=== PATIENT | male | born 1990 | race Caucasian/White ===

== ENCOUNTER 2020-02-27 21:56 | Inpatient (IN) | payer BC ==
[~2020-02-27] VITALS: Ht 180.3 cm; Wt 80.0 kg
--- NOTE | 2020-02-27 22:50 | NUR ---
ASSUMED CARE OF THIS PATIENT AT THIS TIME.
[2020-02-27] MEDS ORDERED: KETOROLAC 30 MG/ML VIAL IVP STA (22:53)
[2020-02-27] MEDS ORDERED: cefTRIAXone FOR IV USE 2,000 MG in WATER (STERILE) FOR INJECTION 20 ML IV ONE (23:00)
[2020-02-27] MEDS ORDERED: NS IV 1000 ML 1,000 ML IV SCH (23:00)
[2020-02-27 23:17] LABS: BASOPHILS % (AUTO) 0 % (0-10); EOSINOPHILS # (AUTO) 0.1 10^3/uL (0.0-0.3); EOSINOPHILS % (AUTO) 1 % (0-10); HEMATOCRIT 39 % (40-54); HEMOGLOBIN 13.4 g/dL (13.3-17.7); LYMPHOCYTES # (AUTO) 1.8 10^3/uL (1.0-4.0); LYMPHOCYTES % (AUTO) 24 % (12-44); MEAN CORPUSCULAR HEMOGLOBIN 31 pg (25-34); MEAN CORPUSCULAR HGB CONC 34 g/dL (32-36); MEAN CORPUSCULAR VOLUME 91 fL (80-99); MEAN PLATELET VOLUME 10.7 fL (9.0-12.2); MONOCYTES # (AUTO) 0.7 10^3/uL (0.0-1.0); MONOCYTES % (AUTO) 10 % (0-12); NEUTROPHILS # (AUTO) 4.7 10^3/uL (1.8-7.8); NEUTROPHILS % (AUTO) 65 % (42-75); PLATELET COUNT 183 10^3/uL (130-400); WHITE BLOOD COUNT 7.3 10^3/uL (4.3-11.0)
[2020-02-27 23:28] LABS: CHLORIDE 95 MMOL/L (98-107); POTASSIUM 4.3 MMOL/L (3.6-5.0); SODIUM 134 MMOL/L (135-145)
[2020-02-27 23:30] LABS: CALCIUM 8.9 MG/DL (8.5-10.1); PROTHROMBIN TIME PATIENT 13.3 SEC (12.2-14.7)
[2020-02-27 23:31] LABS: TOTAL PROTEIN 6.7 GM/DL (6.4-8.2)
[2020-02-27 23:32] LABS: BILIRUBIN,TOTAL 0.4 MG/DL (0.1-1.0); CARBON DIOXIDE 28 MMOL/L (21-32)
[2020-02-27 23:34] LABS: ALKALINE PHOSPHATASE 76 U/L (40-136); CREATININE SERUM 1.06 MG/DL (0.60-1.30); GFR ESTIMATED > 60
[2020-02-27 23:35] LABS: BUN/CREATININE RATIO 13
[2020-02-27 23:36] LABS: GLUCOSE 403 MG/DL (70-105)
[2020-02-27 23:37] LABS: ALANINE AMINOTRANSFERASE 19 U/L (0-55)
[2020-02-27] MEDS ORDERED: inSUlin (REGULAR) HUMAN 1 UNIT/0.01 ML (CHARGE PER UNIT) IV ONE (23:45)
[2020-02-27] MEDS ORDERED: fentaNYL INJECTION 100 MCG/2 ML AMP IVP STA (23:47)
[2020-02-28] MEDS ORDERED: NS 100 ML (IVPB) BAG IV ONE
[2020-02-28] MEDS ORDERED: HOLD METFORMIN - RECEIVED CONTRAST 20 ML VIAL IV SCH
[2020-02-28] MEDS ORDERED: IOHEXOL 350 MG/ML 150 ML (OMNIPAQUE 350) VIAL IV ONE
[2020-02-28] MEDS ORDERED: NS IV 1000 ML 1,000 ML IV SCH (00:30)
[2020-02-28] MEDS ORDERED: fentaNYL INJECTION 100 MCG/2 ML AMP IVP ONE (00:30)
--- NOTE | 2020-02-28 00:38 | ED EENT ---
History of Present Illness General Chief Complaint: Dental Problems/Pain Stated Complaint: FACIAL SWELLING/TEETH PAIN Nursing Triage Note: PT AMB TO RM 8 WITH COMPLAINT OF DENTAL PAIN AND SWELLING. STATES 3 WEEKS AGO HAD TEETH REMOVED. LAST WEEK STARTED WITH INCREASED PAIN AND SWELLING. WENT TO [facility] ON WEDNESDAY, PRESCRIBED ANTIBIOTIC AND PAIN MEDICATION. WENT TO DENTIST YESTERDAY, HAD ROCEPHIN SHOT. ALSO PRESCRIBED CLINDAMYCIN AND HYDROCODONE. STATES WOKE UP THIS MORNING WITH INCREASED SWELLING TO LEFT SIDE OF FACE THAT GOES UP TO EYE. 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 WENT TO [facility] AND SAT IN WAITING ROOM FOR 12 HOURS. Source: patient History of Present Illness Date Seen by Provider: Feb 27, 2020 Time Seen by Provider: 22:45 Initial Comments PT ARRIVES VIA POV FROM [facility] PT HAD DENTAL PROCEDURES DONE 2 1/2-[address] COHN IN [place], [place] HAD BOTH UPPER 2ND MOLARS REMOVED ( WISDOM TEETH/3RD MOLARS WERE REMOVED A LONG TIME AGO) ADDITIONALLY, HE HAD A CROWN REMOVED FROM HIS LEFT FRONT TOOTH, AND A TEMPORARY CROWN PLACED. PT HAD BEEN PRESCRIBED ZITHROMAX AND AMOXIL 500 MG ON 01/29/20 PT BEGAN HAVING INCREASED PAIN TO UPPER JAW--MOSTLY IN AREA OF LEFT FRONT TOOTH, AND GRADUALLY HAS EXPANDED ALL ACROSS UPPER LEFT JAW WENT TO [facility] LAST Wednesday02/23/20 AND WAS PLACED ON AMOXIL 500 MG TID AND HYDROCODONE 05/325 FOLLOWED UP WITH HIS DENTIST YESTERDAY --WAS HAVING INCREASED PAIN, AND WAS GIVEN A SHOT OF ROCEPHIN AND RX CLINDAMYCIN 300 MG QID AND HYDROCODONE 10/325 WOKE UP THIS MORNING AND LEFT SIDE OF FACE WAS SWOLLEN UP TO HIS LEFT EYE, CALLED HIS DENTIST, WHO ADVISED HIM TO GO TO ER. PT WENT TO [facility] AT 0900 AND WAITED FOR 12 HOURS AND THEN LEFT WITHOUT BEING SEEN AND THEN CAME HERE. NO FEVER AT ANY TIME C/O SEVERE PAIN AND PRESSURE TO AREA BETWEEN UPPER LIP AND NOSE, WELL PAIN AND PRESSURE TO LEFT SIDE OF FACE. NO HISTORY OF SIMILAR. PT IS TYPE 1 DIABETIC--BLOOD SUGARS HAVE BEEN 170-190 EARLIER TODAY. TAKES NOVOLOG AND TOUJEO. PCP: [facility] DESAI MO Allergies and Home Medications Allergies Coded Allergies: No Known Drug Allergies (Unverified , 02/27/20) Patient Home Medication List Home Medication List Reviewed: Yes Review of Systems Review of Systems Constitutional: no symptoms reported; No chills, No diaphoresis, No dizziness, No fever Eyes: No Symptoms Reported; Denies Blurred Vision, Denies Pain; Other (NO PAIN WITH EYE MOVEMENT) Ears: No Symptoms Reported Nose: no symptoms reported Mouth: see HPI Throat: no symptoms reported Respiratory: no symptoms reported Cardiovascular: no symptoms reported Gastrointestinal: no symptoms reported; No nausea, No vomiting Musculoskeletal: no symptoms reported; No neck pain Skin: see HPI Neurological: No Symptoms Reported; Denies Numbness, Denies Paresthesia, Denies Tingling Hematologic/Lymphatic: No Symptoms Reported Immunological/Allergic: no symptoms reported Past Gamaezk-Uhwdsa-Mqxrgk Hx Past Med/Social Hx: Reviewed and Corrections made Patient Social History Alcohol Use: Denies Use Drug of Choice: DENIES Smoking Status: Never a Smoker Recent Infectious Disease Expo: No Recent Hopitalizations: No Immunizations Up To Date Tetanus Booster (TDap): Unknown PED Vaccines UTD: Yes Seasonal Allergies Seasonal Allergies: No Past Medical History Surgeries: Yes (DENTAL) Tonsillectomy Respiratory: No Cardiac: Yes Hypertension Neurological: No Genitourinary: No Gastrointestinal: No Musculoskeletal: No Endocrine: Yes (TYPE 1 DIABETES) Diabetes, Insulin dep HEENT: Yes (DENTAL PROCEDURES) Cancer: No Psychosocial: No Integumentary: No Blood Disorders: No Family Medical History SURGICAL HISTORY: -TONSILLECTOMY -WISDOM TEETH REMOVED A LONG TIME AGO -01/2020--BILATERAL UPPER 2ND MOLARS REMOVED; LEFT UPPER CENTRAL INCISOR CROWN REMOVED AND TEMPORARY CROWN PLACED. Physical Exam Vital Signs Vital Signs - First Documented 02/27/20 22:07 Temp 36.0 Pulse 105 Resp 20 B/P (MAP) 156/107 (123) Pulse Ox 100 O2 Delivery Room Air Height, Weight, BMI Height: '" Weight: lbs. oz. kg; 24.00 BMI Method: General Appearance: WD/WN, no apparent distress Eyes: bilateral eye PERRL, bilateral eye EOMI, bilateral eye other (MODERATE SWELLING WELL SIGNIFICANT ERYTHEMA BELOW LEFT EYE. NO CONJUNCTIVAL INFLAMMATION OR DRAINAGE. NO PAIN ON EYE MOVEMENT) Ears: bilateral ear auricle normal Nose: other (SWELLING BETWEEN NOSE AND UPPER LIP, WITH MARKED TENDERNESS TO AREA. LEFT SIDE OF NOSE MODERATELY SWOLLEN) Mouth/Throat: maxillary swelling; No voice changes; other (MODERATE SWELLING TO LEFT SIDE OF FACE AND UPPER LIP, WITH ERYTHEMA TO LEFT SIDE OF FACE-UP TO LEFT LOWER LID AREA--THIS AREA JUST BELOW LEFT EYE HAS SIGNFICANT ERYTHEMA. UPPER GUM TISSUE ABOVE LEFT CENTRAL INCISOR WITH DUSKINESS AND EVIDENCE OF ABSCESS. UNABLE TO COMPLETELY VISUALIZE EXTRACTION SITES, BUT APPEAR GROSLLY NORMAL. ) Neck: non-tender, full range of motion, supple, lymphadenopathy (R), lymphadenopathy (L), other (LONGITUDINAL ERYTHEMA TO RIGHT LATERAL NECK FROM JUST BELOW EAR, NEARLY DOWN TO RIGHT CLAVICLE. NO GROSS SWELLING TO NECK OR MANDIBULAR AREA. NO ERYTHEMA TO LEFT SIDE OF NECK ) Cardiovascular: regular rate, rhythm, no murmur Respiratory: normal breath sounds, no respiratory distress Gastrointestinal: soft Neurologic/Psychiatric: data coordinator II-XII nml as tested, no motor/sensory deficits, alert, normal mood/affect, oriented x 3 Skin: normal color, warm/dry, other ( ABOVE) Progress/Results/Core Measures Results/Orders Lab Results Laboratory Tests Test 02/27/20 23:00 02/28/20 00:35 Range/Units White Blood Count 7.3 4.3-11.0 10^3/uL Red Blood Count 4.29 L 4.30-5.52 10^6/uL Hemoglobin 13.4 13.3-17.7 g/dL Hematocrit 39 L 40-54 % Mean Corpuscular Volume 91 80-99 fL Mean Corpuscular Hemoglobin 31 25-34 pg Mean Corpuscular Hemoglobin Concent 34 32-36 g/dL Red Cell Distribution Width 12.2 10.0-14.5 % Platelet Count 183 130-400 10^3/uL Mean Platelet Volume 10.7 9.0-12.2 fL Immature Granulocyte % (Auto) 0 % Neutrophils (%) (Auto) 65 42-75 % Lymphocytes (%) (Auto) 24 12-44 % Monocytes (%) (Auto) 10 0-12 % Eosinophils (%) (Auto) 1 0-10 % Basophils (%) (Auto) 0 0-10 % Neutrophils # (Auto) 4.7 1.8-7.8 10^3/uL Lymphocytes # (Auto) 1.8 1.0-4.0 10^3/uL Monocytes # (Auto) 0.7 0.0-1.0 10^3/uL Eosinophils # (Auto) 0.1 0.0-0.3 10^3/uL Basophils # (Auto) 0.0 0.0-0.1 10^3/uL Immature Granulocyte # (Auto) 0.0 0.0-0.1 10^3/uL Prothrombin Time 13.3 12.2-14.7 SEC INR Comment 1.0 0.8-1.4 Activated Partial Thromboplast Time 31 24-35 SEC Sodium Level 134 L 135-145 MMOL/L Potassium Level 4.3 3.6-5.0 MMOL/L Chloride Level 95 L 98-107 MMOL/L Carbon Dioxide Level 28 21-32 MMOL/L Anion Gap 11 5-14 MMOL/L Blood Urea Nitrogen 14 7-18 MG/DL Creatinine 1.06 0.60-1.30 MG/DL Estimat Glomerular Filtration Rate > 60 BUN/Creatinine Ratio 13 Glucose Level 403 *H 70-105 MG/DL Lactic Acid Level 0.96 0.50-2.00 MMOL/L Calcium Level 8.9 8.5-10.1 MG/DL Corrected Calcium 8.9 8.5-10.1 MG/DL Total Bilirubin 0.4 0.1-1.0 MG/DL Aspartate Amino Transf (AST/SGOT) 16 5-34 U/L Alanine Aminotransferase (ALT/SGPT) 19 0-55 U/L Alkaline Phosphatase 76 40-136 U/L Total Protein 6.7 6.4-8.2 GM/DL Albumin 4.0 3.2-4.5 GM/DL Beta-Hydroxybutyrate (Chem panel) 0.06 0.00-0.27 MMOL/L Procalcitonin 0.23 H <0.10 NG/ML Glucometer 94 70-110 MG/DL My Orders Orders - DEVI HANNON DO Ed Iv/Invasive Line Start (02/27/20 22:53) Ct Neck (Soft Tissue) W (02/27/20 22:53) Cbc With Automated Diff (02/27/20 22:53) Comprehensive Metabolic Panel (02/27/20 22:53) Lactic Acid Analyzer (02/27/20 22:53) Procalcitonin (Pct) (02/27/20 22:53) Protime With Inr (02/27/20 22:53) Partial Thromboplastin Time (02/27/20 22:53) Blood Culture (02/27/20 22:53) Ed Iv/Invasive Line Start (02/27/20 22:53) Ns Iv 1000 Ml (Sodium Chloride 0.9%) (02/27/20 23:00) Ceftriaxone For Iv Use (Rocephin For I (02/27/20 23:00) Ketorolac Injection (Toradol Injection) (02/27/20 22:53) Ct Maxillofacial W (02/27/20 22:53) Insulin (Regular) Human (Novolin R (Per (02/27/20 23:45) Beta Hydroxybutyrate (02/27/20 23:37) Hemoglobin A1c (02/27/20 23:37) Fentanyl Injection (Sublimaze Injection (02/27/20 23:47) Iohexol Injection (Omnipaque 350 Mg/Ml 1 (02/28/20 00:00) Received Contrast (Hold Metformin- Contr (02/28/20 00:00) Ns (Ivpb) (Sodium Chloride 0.9% Ivpb Bag (02/28/20 00:00) Fentanyl Injection (Sublimaze Injection (02/28/20 00:30) Accucheck Stat ONCE (02/28/20 00:24) Ed Iv/Invasive Line Start (02/28/20 00:24) Ns Iv 1000 Ml (Sodium Chloride 0.9%) (02/28/20 00:30) Medications Given in ED Current Medications Medications Dose Ordered Sig/Yessenia Route Start Time Stop Time Status Last Admin Dose Admin Ceftriaxone Sodium 2000 mg/ Sterile Water 20 ml @ 240 mls/hr ONCE ONCE IV 02/27/20 23:00 02/27/20 23:04 DC 02/27/20 23:16 240 MLS/HR Insulin Human Regular 20 unit ONCE ONCE IV 02/27/20 23:45 02/27/20 23:46 DC 02/27/20 23:45 10 UNIT Iohexol 150 ml ONCE ONCE IV 02/28/20 00:00 02/28/20 00:01 DC 02/27/20 23:53 150 ML Sodium Chloride 80 ml ONCE ONCE IV 02/28/20 00:00 02/28/20 00:01 DC 02/27/20 23:53 80 ML Vital Signs/I&O 02/27/20 02/28/20 22:07 00:27 Temp 36.0 36.0 Pulse 105 Resp 20 B/P (MAP) 156/107 (123) Pulse Ox 100 O2 Delivery Room Air Blood Pressure Mean: 123 Progress Progress Note : Progress Note GIVEN ROCEPHIN GIVEN TORADOL WITH MINIMAL IMPROVEMENT IN PAIN GIVEN FENTANYL WITH SOME IMPROVEMENT IN PAIN GIVEN IV FLUIDS AND 10 UNITS OF REGULAR INSULIN--BLOOD GLUCOSE DROPPED TO 94 AND PT WAS BEGINNING TO FEEL LIKE BLOOD SUGAR WAS LOW--GIVEN ORANGE JUICE WITH IMP ROVEMENT IN THOSE SYMPTOMS VITALS STABLE NO FEVER DURING ER STAY Diagnostic Imaging Comments CT NECK SOFT TISSUES--MILD HAZY STRANDING ALONG THE FACE GREATER ON LEFT SUGGESTING CELLULITIS, MUCOSAL THICKENING IN LEFT MAXILLARY SINUS, CERVICAL CHAIN ADENOPATHY-LIKELY REACTIVE--PER [facility] VIA FAX AT 0007 CT MAXILLOFACIALS--FINDINGS SUGGESTIVE OF PERIAPICAL ABSCESS LEFT MAXILLARY CENTRAL AND LATERAL INCISORS (1.5 X 1.1 X 2.1 CM IN SIZE), PROBABLE SOFT TISSUE ABSCESS BUCCAL SOFT TISSUES ALONG LEFT MAXILLA JUST TO LEFT OF MIDLINE, SURROUNDING CELLULITIS IN LEFT FACE-SOFT TISSUE SWELLING ALONG MAXILLA AND LEFT FACE INFRAORBITAL REGION. RECENT EXTRACTION BILATERAL SECOND MAXILLARY MOLARS. --PER [facility] VIA FAX AT 0016 Reviewed: Reviewed by Me Departure Communication (Admissions) 0020--SPOKE WITH DR. MARK, HOSPITALIST, ACCEPTS PT FOR ADMIT. WILL CONSULT DR. PIZARRO, MAXILLOFACIAL SURGEON, IN AM. Impression Primary Impression: DENTAL ABSCESS WITH FACIAL CELLULITIS Additional Impressions: Failure of outpatient treatment Type 1 diabetes mellitus with hyperglycemia, with long-term current use of insulin Disposition: ADMITTED INPATIENT Condition: Stable Admissions Decision to Admit Reason: Admit from ER (General) Decision to Admit/Date: Feb 28, 2020 Time/Decision to Admit Time: 00:20 Departure-Patient Inst. Referrals: NO,LOCAL PHYSICIAN (PCP/Family) Primary Care Physician DEVI HANNON DO Feb 28, 2020 00:38
--- NOTE | 2020-02-28 01:10 | NUR ---
HELENA GRISSOM admitted to room 416-1, with an admitting diagnosis of Dental abscess with facial cellulitis, on 02/28/20 from [place] via wheelchair, accompanied by ED staff.HELENA GRISSOM introduced to surroundings, call light, bed controls, phone, TV, temperature control, lights, meal times, smoking policy, visitor policy, side rail policy, bathrooms and showers. Patient Rights given to patient in the handbook. HELENA GRISSOM verbalizes understanding that [facility] is not responsible for the loss or damage to any personal effects or valuables that are kept in the patients possession during their hospitalization. HELENA GRISSOM verbalizes understanding of Interdisciplinary Patient Education. Patient and/or family were informed about the Rapid Response Team and its purpose.
[2020-02-28] MEDS: NS IV 1000 ML 1,000 ML IV SCH ×3 (01:30→15:17)
[2020-02-28] MEDS ORDERED: ONDANSETRON 4 MG/2 ML (SDV) Z0FRAN IV PRN (01:30)
[2020-02-28 04:00] VITALS: BP 181/80
[2020-02-28] MEDS: KETOROLAC 30 MG/ML VIAL IVP PRN ×2 (04:34→13:49)
[2020-02-28 05:19] LABS: BASOPHILS % (AUTO) 0 % (0-10); EOSINOPHILS % (AUTO) 1 % (0-10); HEMATOCRIT 34 % (40-54); HEMOGLOBIN 12.2 g/dL (13.3-17.7); LYMPHOCYTES # (AUTO) 1.9 10^3/uL (1.0-4.0); LYMPHOCYTES % (AUTO) 31 % (12-44); MEAN CORPUSCULAR HEMOGLOBIN 32 pg (25-34); MEAN CORPUSCULAR HGB CONC 36 g/dL (32-36); MEAN CORPUSCULAR VOLUME 89 fL (80-99); MEAN PLATELET VOLUME 10.4 fL (9.0-12.2); MONOCYTES # (AUTO) 0.6 10^3/uL (0.0-1.0); MONOCYTES % (AUTO) 10 % (0-12); NEUTROPHILS # (AUTO) 3.6 10^3/uL (1.8-7.8); NEUTROPHILS % (AUTO) 58 % (42-75); PLATELET COUNT 165 10^3/uL (130-400); WHITE BLOOD COUNT 6.2 10^3/uL (4.3-11.0)
[2020-02-28] MEDS: inSUlin ASPART (NovoLOG) 1 UNIT/0.01 ML (CHARGE PER UNIT) SC SCH ×4 (06:50→20:54)
[2020-02-28] MEDS: fentaNYL INJECTION 100 MCG/2 ML AMP IV PRN ×8 (06:55→22:57)
[2020-02-28 08:00] VITALS: BP 140/90
--- NOTE | 2020-02-28 08:31 | Diagnostic Imaging Report ---
PROCEDURE: CT maxillofacial with contrast. TECHNIQUE: After intravenous administration of contrast, axial images were obtained through the face and reformatted into coronal and sagittal planes. Auto Exposure Controls were utilized during the CT exam to meet ALARA standards for radiation dose reduction. INDICATION: Cellulitis. COMPARISON: None. FINDINGS: There is a large periapical lucency about the central and lateral maxillary incisors. Adjacent anterior soft tissue edema and circumscribed fluid collection consistent with an abscess measuring approximately 1.5 x 0.9 cm. No other periapical lucencies. No significant edema within the floor of the mouth. The tongue base, epiglottis and retropharyngeal spaces are unremarkable. Prominent left level 1B lymph node measuring up to 1.1 cm in short axis dimension is likely reactive. No evidence of necrosis. The major salivary glands are unremarkable. Mucosal thickening in the floor of the maxillary sinuses. No fractures. The orbits and visualized intracranial contents are unremarkable. The visualized mastoids and middle ears are clear. IMPRESSION: Periapical lucencies involving the maxillary, left central and lateral incisor with adjacent soft tissue abscess measuring up 1.5 cm. No significant change from preliminary interpretation. Dictated by: Dictated on workstation # [id number]
--- NOTE | 2020-02-28 08:34 | Diagnostic Imaging Report ---
PROCEDURE: CT neck soft tissue with contrast. TECHNIQUE: Multiple contiguous axial images were obtained through the neck after the administration of contrast. Auto Exposure Controls were utilized during the CT exam to meet ALARA standards for radiation dose reduction. INDICATION: Cellulitis. COMPARISON: CT maxillofacial also performed today. FINDINGS: An enlarged left level 1B cervical lymph node is likely reactive. No other cervical lymphadenopathy. The floor of the mouth, tongue base, epiglottis, and retropharyngeal space are negative. The thyroid and major salivary glands are unremarkable. The lung apices are clear. No acute osseous findings. The cervical carotid and vertebral arteries are grossly patent on this non-angiographic exam. The skull base is intact. The mastoids and middle ears are clear. IMPRESSION: Left level 1B cervical lymphadenopathy is likely reactive and secondary to the periodontal abscess seen on the comparison exam. The CT of the neck is otherwise unremarkable. Dictated by: Dictated on workstation # [id number]
--- NOTE | 2020-02-28 09:01 | History & Physical-Hospitalist ---
TEREZA WYLIE MED STUDENT 02/28/20 0900: History of Present Illness HPI/Chief Complaint Barber is a 30yo male presenting with dental abscess and facial cellulitis. He states that about 3wks ago he had both 2nd upper molars removed and starting about a week ago, progressively began experiencing pain and swelling starting at his in his L upper front tooth, that slowly progressed laterally. He was seen in [facility] last Wednesday where he was given Amoxil and Hydrocodone. The pain/swelling continued to worsen, so he went to the dentist on Wednesday and was given a Rocephin shot, and yesterday morning the swelling progressed up to his L eye, at which point he contacted his dentist and was told to go to [facility]. He waited in the [facility] for 12hrs without being seen before leaving and coming here. He states his pain is 4/10 dull pressure focused on his L upper jaw and around the front of his face. He says his pain was up to 8/10 prior to receiving pain medication. Denies chest pain, fevers/chills, N/V. Source: patient, EMS notes reviewed Exam Limitations: no limitations Date Seen 02/28/20 Time Seen by a Provider: 09:00 Attending Physician Eunice Flowers MD PCP No,Local Physician Referring Physician Date of Admission Feb 28, 2020 at 00:20 Home Medications & Allergies Home Medications Reviewed patient Home Medication Reconciliation performed by pharmacy medication reconciliations earth science laboratory technician and/or nursing. Patients Allergies have been reviewed. Allergies Allergies Coded Allergies No Known Drug Allergies (Unverified02/27/20) Past Frfzbae-Nifavv-Zxpyxc Hx Past Med/Social Hx: Reviewed and Corrections made Patient Social History Number of Children: 1 Number of living children: 1 Alcohol Use: Regular Use (about 8drinks/week over the weekend) Alcohol Beverage of Choice: Beer Recreational Drug Use: No Drug of Choice: DENIES Smoking Status: Never a Smoker Recent Foreign Travel: No Contact w/other who traveled: No Recent Hopitalizations: No Recent Infectious Disease Expo: No Immunizations Up To Date Tetanus Booster (TDap): Unknown Pediatric: Yes Seasonal Allergies Seasonal Allergies: No Past Medical History Surgeries: Tonsillectomy Cardiac: Hypertension Endocrine: Diabetes, Insulin dep Loss of Vision: Denies Hearing Impairment: Denies History of Blood Disorders: No Family History Reviewed and Corrections made Hypertension (Father) SURGICAL HISTORY: -TONSILLECTOMY -WISDOM TEETH REMOVED A LONG TIME AGO -01/2020--BILATERAL UPPER 2ND MOLARS REMOVED; LEFT UPPER CENTRAL INCISOR CROWN REMOVED AND TEMPORARY CROWN PLACED. Review of Systems Constitutional: No chills, No dizziness, No fever, No weakness EENTM: dental problems, mouth pain, mouth swelling; No hearing loss, No blurred vision, No double vision, No eye pain, No vision loss Respiratory: No cough, No short of breath Cardiovascular: No chest pain; edema (swelling from upper jaw extending up to L eye); No palpitations Gastrointestinal: No abdominal pain, No dysphagia, No nausea, No vomiting Genitourinary: No dysuria, No frequency, No hematuria Musculoskeletal: No muscle pain, No muscle stiffness, No muscle cramps Skin: change in color (erythema to area of facial cellulitis); No lesions, No pruritus, No rash Psychiatric/Neurological: Headache (sinus pressure); Denies Numbness, Denies Tingling Physical Exam Physical Exam Vital Signs Vital Signs - First Documented 02/27/20 22:07 Temp 36.0 Pulse 105 Resp 20 B/P (MAP) 156/107 (123) Pulse Ox 100 O2 Delivery Room Air Capillary Refill : Less Than 3 Seconds Height, Weight, BMI Height: '" Weight: lbs. oz. kg; 24.42 BMI Method: General Appearance: No Apparent Distress, WD/WN HEENT: PERRL/EOMI, Moist Mucous Membranes, Other (swelling/erythema from L upper lip extending along face up to L eye) Neck: Full Range of Motion, Non Tender, Supple, Lymphadenopathy (R) Respiratory: Chest Non Tender, Lungs Clear, Normal Breath Sounds, No Accessory Muscle Use, No Respiratory Distress Cardiovascular: Regular Rate, Rhythm, No Gallop, No JVD, No Murmur, Normal Peripheral Pulses, Other (facial edema) Gastrointestinal: Normal Bowel Sounds, Non Tender, Soft Rectal: Deferred Back: Normal Inspection, No CVA Tenderness, No Vertebral Tenderness Extremity: Normal Capillary Refill, Normal Inspection, Normal Range of Motion, Non Tender, No Pedal Edema Neurologic/Psychiatric: Alert, Oriented x3, No Motor/Sensory Deficits, Normal Mood/Affect Skin: Warm/Dry, Erythema (L upper lip extending up to L eye) Lymphatic: Other (R cervical lymphadenopathy) Results Results/Procedures Labs Laboratory Tests 02/27/20 23:00 02/28/20 05:05 Patient resulted labs reviewed. Assessment/Plan Admission Diagnosis Dental abscess w/ facial cellulitis Assessment and Plan Dental abscess w/ facial cellulitis Maxillofacial CT showed likely abscess L upper jaw Continue Abx, pain management, probiotic, NPO, maintenance fluids OMFS consulted HTN Continue home med, Lisinopril 20mg QD IDDM Continue home regimen Toujeo 34units QHS for long-acting, sliding scale for meals DORON HOLLIS MD 02/28/20 1550: Assessment/Plan Admission Diagnosis Admission Status: Inpatient Order (span 2 midnights) Reason for Inpatient Admission: see below Assessment and Plan Patient admitted due to dental abscess after failing outpatient antibiotics. Will continue on IV antibiotics and await Dr Aleman's consultation. Resume basal insulin and continue SSI. Await blood cultures. Will add probiotics given multiple exposures to antibiotics. Diagnosis/Problems Diagnosis/Problems (1) DENTAL ABCESS WITH FACIAL CELLULITIS, TYPE 1 DIABETES (2) Failure of outpatient treatment Status: Acute (3) Type 1 diabetes mellitus with hyperglycemia, with long-term current use of insulin Status: Acute Supervisory-Addendum Brief Verification & Attestation Participated in pt care: history, MDM, physical Personally performed: exam, history, MDM, supervision of care Care discussed with: Medical Student Procedures: n/a Results interpretation: Verified all documentation Verification and Attestation of Medical Student E/M Service A medical student performed and documented this service in my presence. I revi ewed and verified all information documented by the medical student and made modifications to such information, when appropriate. I personally performed the physical exam and medical decision making. Doron Hollis, Feb 28, 2020,15:52 TEREZA WYLIE MED STUDENT Feb 28, 2020 09:00 DORON HOLLIS MD Feb 28, 2020 15:50
[2020-02-28] MEDS ORDERED: HYDR-3820 PO (11:27)
[2020-02-28] MEDS ORDERED: INSU100C3 SC (11:27)
[2020-02-28] MEDS ORDERED: LISI-552 PO (11:27)
[2020-02-28] MEDS ORDERED: INSU300I SC (11:27)
[2020-02-28] MEDS ORDERED: IBUP-2185 PO (11:27)
[2020-02-28] MEDS ORDERED: DEXT15TA PO (11:27)
[2020-02-28] MEDS ORDERED: CLIN300C12 PO (11:27)
--- NOTE | 2020-02-28 11:27 | NUR ---
SPOKE WITH THE PT AND WENT THRU THE EXT MED HISTORY TO COMPLETE THE MED REC THE EXT MED HISTORY SHOWS PREVIDENT TOOTHPASTE BEING FILLED IN HOWEVER THE PT SAYS SHE IS NO LONGER USING OTC MEDS: IBUPROFEN
[2020-02-28 12:00] VITALS: BP 130/78
[2020-02-28] MEDS: LACTOBACILLUS ACIDOPHILUS (PROBIOTIC) CAPSULE PO SCH ×2 (12:56→18:46)
[2020-02-28 16:00] VITALS: BP 128/69
[2020-02-28 20:03] VITALS: BP 115/72
[2020-02-28] MEDS: cefTRIAXone 2,000 MG/SWFI 20 ML IV PUSH IV SCH ×2 (20:54)
[2020-02-28] MEDS: lisINopril 20 MG (PRINIVIL) TABLET PO SCH (20:54)
--- NOTE | 2020-02-28 21:39 | NUR ---
Patient refused 2100 dose of Levemir 34u. Patient states that he takes 34u Toujeo at home but states Levemir is not an interchangeable long acting substitute for him as half-lives are different. Patient did confirm that he could take 28u Lantus. Patient states he would rather have no long acting insulin for tonight as he has already been without Toujeo for 2 nights with no FSBS over 300. This RN contacted Dr Booker and notified him of patients Levemir refusal, consent to take 28u Lantus, and preference to go without long acting insulin for the night. Also informed of pt's 20:00 FSBS of 229 and that pt received 3u Novolog. aware of patient refusal, no new orders at this time.
[2020-02-28 23:56] VITALS: BP 151/90
[2020-02-29] MEDS: NS IV 1000 ML 1,000 ML IV SCH ×2 (00:33→21:41)
[2020-02-29] MEDS: KETOROLAC 30 MG/ML VIAL IVP PRN (00:55)
[2020-02-29] MEDS: fentaNYL INJECTION 100 MCG/2 ML AMP IV PRN ×7 (00:56→22:30)
[2020-02-29 04:00] VITALS: BP 107/67
[2020-02-29] MEDS: inSUlin ASPART (NovoLOG) 1 UNIT/0.01 ML (CHARGE PER UNIT) SC SCH ×4 (05:54→20:21)
[2020-02-29 06:55] LABS: ALBUMIN 3.2 GM/DL (3.2-4.5); CHLORIDE 107 MMOL/L (98-107); POTASSIUM 4.3 MMOL/L (3.6-5.0); SODIUM 139 MMOL/L (135-145)
[2020-02-29 06:56] LABS: CALCIUM 7.7 MG/DL (8.5-10.1)
[2020-02-29 06:57] LABS: GLUCOSE 116 MG/DL (70-105)
[2020-02-29 06:58] LABS: CARBON DIOXIDE 24 MMOL/L (21-32); TOTAL PROTEIN 5.3 GM/DL (6.4-8.2)
[2020-02-29 06:59] LABS: BILIRUBIN,TOTAL 0.3 MG/DL (0.1-1.0)
[2020-02-29 07:01] LABS: ALKALINE PHOSPHATASE 103 U/L (40-136); CREATININE SERUM 0.78 MG/DL (0.60-1.30); GFR ESTIMATED > 60
[2020-02-29 07:02] LABS: BUN/CREATININE RATIO 23
[2020-02-29 07:04] LABS: ALANINE AMINOTRANSFERASE 41 U/L (0-55)
[2020-02-29 07:40] VITALS: BP 127/90
[2020-02-29] MEDS: LACTOBACILLUS ACIDOPHILUS (PROBIOTIC) CAPSULE PO SCH ×3 (08:14→17:06)
--- NOTE | 2020-02-29 08:45 | Progress Note - Hospitalist ---
TEREZA WYLIE MED STUDENT 02/29/20 0845: Subjective HPI/CC On Admission Date Seen by Provider: Feb 29, 2020 Time Seen by Provider: 06:10 Barber is a 30yo male presenting with dental abscess and facial cellulitis. He states that about 3wks ago he had both 2nd upper molars removed and starting about a week ago, progressively began experiencing pain and swelling starting at his in his L upper front tooth, that slowly progressed laterally. He was seen in [place] [facility] last Wednesday where he was given Amoxil and Hydrocodone. The pain/swelling continued to worsen, so he went to the dentist on Wednesday and was given a Rocephin shot, and yesterday morning the swelling progressed up to his L eye, at which point he contacted his dentist and was told to go to [place] [facility]. He waited in the [place] [facility] for 12hrs without being seen before leaving and coming here. He states his pain is 4/10 dull pressure focused on his L upper jaw and around the front of his face. He says his pain was up to 8/10 prior to receiving pain medication. Denies chest pain, fevers/chills, N/V. Subjective/Events-last exam Pt seen and examined. He was resting in bed resting, NAD. Episode of N/V overnight after eating dinner, feels better this morning. Pain has been about the same, has been needing Fentanyl doses Q2. Seen by Dr. Aleman yesterday and was told he would be back to see him today after reviewing his CT scan. Denies chest pain, SOB. Review of Systems General: No Chills HEENT: No Head Aches Pulmonary: No Dyspnea Cardiovascular: No: Chest Pain, Palpitations, Lt Headedness Gastrointestinal: Nausea, Vomiting, Constipation (pt feels like he might be getting constipated, requesting medication); No: Abdominal Pain Genitourinary: No Dysuria Neurological: No: Weakness, Numbness Focused Exam Lactate Level 02/27/20 23:00: Lactic Acid Level 0.96 Objective Exam Vital Signs Vital Signs Date Time Temp Pulse Resp B/P (MAP) Pulse Ox O2 Delivery O2 Flow Rate FiO2 02/29/20 08:24 99 Room Air 02/29/20 07:40 36.4 65 18 127/90 (102) Capillary Refill : Less Than 3 SecondsLess Than 3 Seconds General Appearance: No Apparent Distress, WD/WN HEENT: PERRL/EOMI, Normal ENT Inspection, Other (cellulitis along upper jaw up to L eye appears to be improving slightly, tenderness under jaw) Neck: Full Range of Motion, Normal Inspection, Supple, Lymphadenopathy (R) Respiratory: Chest Non Tender, Lungs Clear, Normal Breath Sounds, No Accessory Muscle Use, No Respiratory Distress Cardiovascular: Regular Rate, Rhythm, No Gallop, No JVD, No Murmur, Normal Peripheral Pulses Gastrointestinal: Normal Bowel Sounds, Non Tender, Soft Rectal: Deferred Back: Normal Inspection, No CVA Tenderness, No Vertebral Tenderness Extremity: Normal Capillary Refill, Normal Inspection, Normal Range of Motion, Non Tender, No Pedal Edema Neurologic/Psychiatric: Alert, Oriented x3, No Motor/Sensory Deficits, Normal Mood/Affect Skin: Warm/Dry, Erythema (swelling/redness from upper jaw up to L eye) Lymphatic: Other (R cervical lymphadenopathy) Results/Procedures Lab Laboratory Tests 02/29/20 06:08 Patient resulted labs reviewed. Assessment/Plan Assessment and Plan Assess & Plan/Chief Complaint Dental abscess w/ facial cellulitis Maxillofacial CT showed likely abscess L upper jaw Continue Abx, pain management, probiotics, CHO diet OMFS following, seen yesterday, possible I&D HTN Continue home med, Lisinopril 20mg QD IDDM Refused 34u Levemir last night, received 28u Lantus Sliding scale for meals GOSIA THOMAS MD 02/29/20 1621: Assessment/Plan Assessment and Plan Assess & Plan/Chief Complaint Patient doing well. Still has some swelling in his face but less so than yesterday. Discussed with Dr Aleman who will see him today and decided about tooth extraction. Likely will continue admission for another day for further IV antibiotics and discharge tomorrow straight to Dr Aleman's office for 11:00AM appointment. Refused insulin last night. Decrease dose to 28 units for evening dose if he will take it. Supervisory-Addendum Brief Verification & Attestation Participated in pt care: history, MDM, physical Personally performed: exam, history, MDM, supervision of care Care discussed with: Medical Student Procedures: n/a Results interpretation: Verified all documentation Verification and Attestation of Medical Student E/M Service A medical student performed and documented this service in my presence. I reviewed and verified all information documented by the medical student and made modifications to such information, when appropriate. I personally performed the physical exam and medical decision making. Gosia Thomas, Feb 29, 2020,16:17 TEREZA WYLIE MED STUDENT Feb 29, 2020 08:45 GOSIA THOMAS MD Feb 29, 2020 16:21
[2020-02-29] MEDS ORDERED: SENNA W/DOCUSATE (SENOKOT S) TABLET PO PRN (09:30)
[2020-02-29] MEDS ORDERED: DOCUSATE SODIUM 100 MG (COLACE) CAP PO ONE (09:30)
[2020-02-29] MEDS: HYDROcodone/APAP 5 MG/325 MG (LORTAB) TAB PO PRN ×2 (09:45→14:28)
--- NOTE | 2020-02-29 09:45 | NUR ---
HYDROCODONE PO FOR PAIN.
[2020-02-29 12:00] VITALS: BP 117/86
--- NOTE | 2020-02-29 14:25 | NUR ---
YELLING AT THIS RN BECAUSE DR. PIZARRO HAS NOT BEEN IN YET. DR. PIZARRO CALLED AND STATES STILL IN SURGERY, BUT WILL BE HERE SHORTLY. PT MADE AWARE.
--- NOTE | 2020-02-29 14:30 | NUR ---
LORTAB PO FOR PAIN.
[2020-02-29 16:18] VITALS: BP 163/98
--- NOTE | 2020-02-29 20:12 | Discharge Inst-Simple/Standard ---
Discharge Inst-Standard Patient Instructions/Follow Up Plan of Care/Instructions/FU: Please go straight to Dr Aleman's office for your visit. Please take the antibiotics and medications he prescribes after your visit. Activity as Tolerated: Yes Discharge Diet: No Restrictions Return to The Hospital For: Fever, worsening swelling, difficulty swallowing or breathing, worsening pain, very high blood sugars, if you feel you are getting worse. DORON THOMAS MD Feb 29, 2020 20:12
[2020-02-29 20:17] VITALS: BP 148/92
[2020-02-29] MEDS: cefTRIAXone 2,000 MG/SWFI 20 ML IV PUSH IV SCH ×2 (20:20)
[2020-02-29] MEDS: lisINopril 20 MG (PRINIVIL) TABLET PO SCH (20:21)
[2020-02-29] MEDS: DOCUSATE SODIUM 100 MG (COLACE) CAP PO SCH (20:21)
[2020-02-29] MEDS ORDERED: HYDROcodone/APAP 5 MG/325 MG (LORTAB) TAB PO PRN (21:30)
[2020-02-29 23:37] VITALS: BP 132/86
[2020-03-01] MEDS: fentaNYL INJECTION 100 MCG/2 ML AMP IV PRN ×2 (00:43→05:54)
[2020-03-01 04:00] VITALS: BP 131/83
[2020-03-01] MEDS: inSUlin ASPART (NovoLOG) 1 UNIT/0.01 ML (CHARGE PER UNIT) SC SCH (05:53)
[2020-03-01 07:20] VITALS: BP 139/86
[2020-03-01] MEDS: LACTOBACILLUS ACIDOPHILUS (PROBIOTIC) CAPSULE PO SCH (07:47)
[2020-03-01] MEDS: DOCUSATE SODIUM 100 MG (COLACE) CAP PO SCH (07:47)
[2020-03-01] MEDS ORDERED: HYDROcodone/APAP 7.5MG-325 MG/15 ML (LORTAB) UDC PO PRN (08:00)
--- NOTE | 2020-03-01 08:46 | Discharge Summary ---
TEREZA WYLIE MED STUDENT 03/01/20 0846: Diagnosis/Chief Complaint Date of Admission Feb 28, 2020 at 00:20 Date of Discharge Mar 01, 2020 Discharge Date: Mar 01, 2020 Discharge Time: 07:30 Admission Diagnosis Dental abscess w/ facial cellulitis Primary Care No,Local Physician Discharge Diagnosis Dental abscess w/ facial cellulitis (1) DENTAL ABCESS WITH FACIAL CELLULITIS, TYPE 1 DIABETES (2) Failure of outpatient treatment Status: Acute (3) Type 1 diabetes mellitus with hyperglycemia, with long-term current use of insulin Status: Acute Discharge Summary Procedures/Consulations OMFS consult Discharge Physical Exam Allergies: Coded Allergies: No Known Drug Allergies (Unverified , 02/27/20) Vitals & I&Os Vital Signs Date Time Temp Pulse Resp B/P (MAP) Pulse Ox O2 Delivery O2 Flow Rate FiO2 03/01/20 08:05 99 Room Air 03/01/20 07:20 36.2 70 16 139/86 (103) General Appearance: No Apparent Distress, WD/WN HEENT: PERRL/EOMI, Moist Mucous Membranes, Other (facial erythema/edema improving since admission, cervical lymphadenopathy) Respiratory: Chest Non Tender, Lungs Clear, Normal Breath Sounds, No Accessory Muscle Use, No Respiratory Distress Cardiovascular: Regular Rate, Rhythm, No Gallop, No JVD, No Murmur, Normal Peripheral Pulses Gastrointestinal: Normal Bowel Sounds, Non Tender, Soft Extremity: Normal Capillary Refill, Normal Inspection, Normal Range of Motion, Non Tender, No Pedal Edema Skin: Warm/Dry, Erythema (facial erythema/edema) Neurologic/Psychiatric: Alert, Oriented x3, No Motor/Sensory Deficits, Normal Mood/Affect Hospital Course Was the Problem List Reviewed?: Yes Barber was admitted on 02/28/20 for facial cellulitis and dental abscess. Maxillofacial and Neck CT showed probable periapical abscess and facial cellulitis. He was given IV Ceftriaxone through the course of his stay, and pain managed with Fentanyl/Toradol. His pain and swelling improved through the course of his stay. He was seen by OMFS and management of the abscess was planned for I&D as outpatient immediately after d/c from the hospital. Labs (last 24 hrs) Laboratory Tests 02/29/20 10:50: Glucometer 290H 02/29/20 15:30: Glucometer 224H 02/29/20 20:01: Glucometer 257H Microbiology 02/27/20 Blood Culture - Preliminary, Resulted No growth Patient resulted labs reviewed. Radiology Reviewed Maxillofacial and Head CT Imaging: Reviewed Imaging Films, Reviewed Imaging Report Discharge Home Medications: Active Scripts Active Reported Ibuprofen 200 Mg Capsule 400-600 Mg PO Q6H PRN Lisinopril 20 Mg Tablet 20 Mg PO HS Novolog (Insulin Aspart) 300 Units/3 Ml Cartridge Units SC AC USES PER SLIDING SCALE Toujeo Solostar (Insulin Glargine,Hum.rec.anlog) 300 Unit/1 Ml Insuln.pen 34 Units SC HS Amphetamine Salts 15 mg Tablet (Dextroamphetamine/Amphetamine) 15 Mg Tablet 15 Mg PO 0700,1200 Hydrocodone-Acetamin 10-325 mg (Hydrocodone/Acetaminophen) 1 Each Tablet 0.5-1 Each PO Q6H PRN Instructions to patient/family Please see electronic discharge instructions given to patient. GOSIA HOLLIS MD 03/01/201956: Discharge Summary Discharge Physical Exam Allergies: Coded Allergies: No Known Drug Allergies (Unverified , 02/27/20) Discussion & Recommendations Discharge Planning: >30 minutes discharge planning Clinical Quality Measures Admission Status Admission Status: Observation Supervisory-Addendum Brief Verification & Attestation Participated in pt care: history, MDM, physical Personally performed: exam, history, MDM, supervision of care Care discussed with: Medical Student Procedures: n/a Results interpretation: Verified all documentation Verification and Attestation of Medical Student E/M Service A medical student performed and documented this service in my presence. I reviewed and verified all information documented by the medical student and made modifications to such information, when appropriate. I personally performed the physical exam and medical decision making. Gosia Hollis, Mar 01, 2020,19:53 TEREZA WYLIE MED STUDENT Mar 01, 2020 08:46 GOSIA HOLLIS MD Mar 01, 2020 19:57
--- NOTE | 2020-03-01 09:52 | NUR ---
RX AND INST AND VERBALIZED UNDERSTANDING. AWAITING RIDE FOR DC.
--- NOTE | 2020-03-01 10:38 | NUR ---
JOHN'D PER WC TO APPT AT DR. PIZARRO'S OFFICE.
== END 2020-03-01 10:38 | disposition home or self-care (01) | DRG 158 ==
LOC: ER 22:01 → 4TH 02-28 00:20
PROVIDERS: ADMIT Internal Medicine; ATTEND Internal Medicine
DX: K04.7 Periapical abscess without sinus (principal); L03.211 Cellulitis of face; I10 Essential (primary) hypertension; E10.65 Type 1 diabetes mellitus with hyperglycemia; Z79.4 Long term (current) use of insulin
CPT/HCPCS: 36415; 70487; 70491; 80053; 82010; 82962; 83036; 83605; 84145; 85025; 85610; 85730; 87040

== ENCOUNTER 2022-08-27 19:24 | Emergency (ER) | payer BC ==
[~2022-08-27] VITALS: Ht 180 cm; Wt 75.0 kg
[~2022-08-27 19:24] MED LIST: CLIN-144 PO; DEXT15TA PO; HYDR-3820 PO; IBUP-2185 PO; INSU100C3 SC; INSU300I SC; LISI20TA26 PO
[2022-08-27 19:32] VITALS: BP 154/93
[2022-08-27] MEDS ORDERED: diphenhydrAMINE 50 MG/ML INJ (BENADRYL) IVP ONE (19:45)
[2022-08-27] MEDS ORDERED: ORPHENADRINE 60 MG/2 ML (NORFLEX) AMP (ED ONLY) IV ONE (19:45)
[2022-08-27] MEDS ORDERED: KETOROLAC 30 MG/ML VIAL IVP ONE (19:45)
[2022-08-27] MEDS ORDERED: NS IV 1000 ML 1,000 ML IV SCH (19:45)
[2022-08-27 20:01] LABS: BASOPHILS % (AUTO) 0 % (0-10); EOSINOPHILS % (AUTO) 0 % (0-10); HEMATOCRIT 37 % (40-54); HEMOGLOBIN 13.1 g/dL (13.3-17.7); LYMPHOCYTES # (AUTO) 1.5 10^3/uL (1.0-4.0); LYMPHOCYTES % (AUTO) 21 % (12-44); MEAN CORPUSCULAR HEMOGLOBIN 32 pg (25-34); MEAN CORPUSCULAR HGB CONC 35 g/dL (32-36); MEAN CORPUSCULAR VOLUME 90 fL (80-99); MEAN PLATELET VOLUME 10.6 fL (9.0-12.2); MONOCYTES # (AUTO) 0.4 10^3/uL (0.0-1.0); MONOCYTES % (AUTO) 6 % (0-12); NEUTROPHILS # (AUTO) 5.3 10^3/uL (1.8-7.8); NEUTROPHILS % (AUTO) 73 % (42-75); PLATELET COUNT 214 10^3/uL (130-400); WHITE BLOOD COUNT 7.2 10^3/uL (4.3-11.0)
--- NOTE | 2022-08-27 20:30 | Diagnostic Imaging Report ---
INDICATION: Back pain with right leg radiculopathy. TECHNIQUE: Multiple contiguous axial images were obtained through the thoracic and lumbar spine without the use of intravenous contrast. Sagittal and coronal reformations were then performed. All CT scans use one or more of the following dose optimizing techniques: automated exposure control, MA and/or KvP adjustment based on a patient size and exam type, or iterative reconstruction. There is no prior study for comparison The thoracic vertebrae are normal in height and alignment. There are scattered Schmorl's nodes throughout the lower thoracic spine. There is no canal stenosis or acute-appearing abnormality. In the lumbar region, there is no acute fracture or malalignment. There is no spondylolysis or spondylolisthesis. There is no overt canal stenosis. There appears to be some disc bulging at the L5-S1 level, consider MRI for more complete evaluation. IMPRESSION: No acute abnormality in the thoracic or lumbar spine. There is no overt canal stenosis. There is some disc bulging at L5-S1, suggest MRI for more complete evaluation. Dictated by: Dictated on workstation # [id number]
--- NOTE | 2022-08-27 20:36 | ED Back Pain ---
General Chief Complaint: Back Problems Stated Complaint: LOWER BACK PAIN|BLOOD SUGAR ISSUES Nursing Triage Note: Pt presents to ER with complaints of right sciatic pain, reports that he was seen and evaluated at the clinic yesterday for same complaints. Pt reports that he was given a steroid injection, muscle relaxers, and hydrocodone. Pt reports hx of chronic back pain, scheduled for MRI in a couple weeks. Pt denies any recent injury/trauma. Pt reports elevated blood glucose since starting the steroids, pt with known hx of IDDM Source of Information: Patient History of Present Illness Date Seen by Provider: Aug 27, 2022 Time Seen by Provider: 19:30 Initial Comments PT ARRIVES VIA POV FROM HOME IN [place] WITH FEMALE AND INFANT. C/O CHRONIC LOW BACK PAIN AND RIGHT SIDED SCIATICA STATES IT HAS BEEN BAD FOR THE LAST 1 1/2 WEEKS, AND WORSE THE LAST 2 DAYS HE STATES PAIN RADIATES FROM LOW BACK DOWN POSTERIOR AND LATERAL ASPECTS OF RIGHT BUTTOCK DOWN TO RIGHT TOES NO MOTOR DEFICITS NO PARESTHESIAS NO LOSS OF BOWEL OR BLADDER CONTROL OR SADDLE ANESTHESIA NO RECENT INJURY OR UNUSUAL ACTIVITY. 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 HE SAW HIS PCP, DR. SONG WITH [facility], YESTERDAY FOR THIS PROBLEM AND WAS GIVEN A SHOT FOR PAIN, AND PRESCRIBED STEROIDS AND HYDROCODONE, HE HAS ALSO BEEN PRESCRIBED CYCLOBENZAPRINE AND METHOCARBAMOL HE STATES HE HAS AN MRI SCHEDULED IN A COUPLE OF WEEKS AT [facility]. HE IS INSULIN DEPENDENT DIABETIC, AND STATES HIS BLOOD SUGARS HAVE BEEN HIGH SINCE YESTERDAY, SINCE STARTING ON THE STEROIDS STATES "I DID MY A1C YESTERDAY AND IT WAS 7.6" WENT TO [facility] ER TODAY, BUT DID NOT WANT TO WAIT, SO CAME HERE. STATES HE HAD A HYDROCODONE WHILE HE WAS AT [facility]. ON ARRIVAL HERE, PT IS LITERALLY LAYING ON THE FLOOR OF THE WAITING ROOM, SOON HE WALKS INTO THE WAITING ROOM, AND IS THRASHING ALL OVER ON THE FLOOR. Other Comments PCP: DR. SONG, WITH [facility] IN [place] Allergies and Home Medications Allergies Coded Allergies: No Known Drug Allergies (Unverified , 02/27/20) Patient Home Medication List Dextroamphetamine/Amphetamine (Amphetamine Salts 15 mg Tablet) 15 Mg Tablet, 15 MG PO 0700,1200, (Reported) Entered as Reported by: GEORGE NORRIS on 02/28/201126 Hydrocodone/Acetaminophen (Hydrocodone-Acetamin 10-325 mg) 1 Each Tablet, 0.5-1 EACH PO Q6H PRN for PAIN-MODERATE (5-7), (Reported) Entered as Reported by: GEORGE NORRIS on 02/28/201126 Ibuprofen (Ibuprofen) 200 Mg Capsule, 400-600 MG PO Q6H PRN for PAIN-MILD (1-4), (Reported) Entered as Reported by: GEORGE NORRIS on 02/28/201126 Insulin Aspart (Novolog) 300 Units/3 Ml Cartridge, UNITS SC AC, (Reported) Entered as Reported by: GEORGE NORRIS on 02/28/201126 Insulin Glargine,Hum.rec.anlog (Toujeo Solostar) 300 Unit/1 Ml Insuln.pen, 34 UNITS SC HS, (Reported) Entered as Reported by: GEORGE NORRIS on 02/28/201126 Lisinopril (Lisinopril) 20 Mg Tablet, 20 MG PO HS, (Reported) Entered as Reported by: GEORGE NORRIS on 02/28/201126 Review of Systems Constitutional: no symptoms reported Respiratory: no symptoms reported Cardiovascular: no symptoms reported Gastrointestinal: no symptoms reported Genitourinary: no symptoms reported Musculoskeletal: see HPI Skin: no symptoms reported Psychiatric/Neurological: No Symptoms Reported Past Gqivrsy-Tzixbf-Wwahes Hx Patient Social History Tobacco Use?: No Use of E-Cig and/or Vaping dev: No Substance use?: Yes Substance type: Marijuana Alcohol Use?: Yes Pt feels they are or have been: No Immunizations Up To Date Tetanus Booster (TDap): Unknown PED Vaccines UTD: Yes First/Initial COVID19 Vaccinat: vaccinated Seasonal Allergies Seasonal Allergies: No Past Medical History Surgery/Hospitalization HX: Chronic back pain (L4-L5 fx 10-12 years ago), Diabetes, HTN Surgeries: Yes (DENTAL) Tonsillectomy Respiratory: No Cardiac: Yes Hypertension Neurological: No Genitourinary: No Gastrointestinal: No Musculoskeletal: Yes Degenerate Disk Disease, Chronic Back Pain Endocrine: Yes (TYPE 1 DIABETES) Diabetes, Insulin dep HEENT: Yes (DENTAL PROCEDURES) Loss of Vision: Denies Hearing Impairment: Denies Cancer: No Psychosocial: No Integumentary: No Blood Disorders: No Family Medical History Hypertension SURGICAL HISTORY: -TONSILLECTOMY -WISDOM TEETH REMOVED A LONG TIME AGO -01/2020--BILATERAL UPPER 2ND MOLARS REMOVED; LEFT UPPER CENTRAL INCISOR CROWN REMOVED AND TEMPORARY CROWN PLACED. Physical Exam Vital Signs Vital Signs - First Documented 08/27/22 19:32 Temp 36.7 Pulse 81 Resp 18 B/P (MAP) 154/93 (113) Pulse Ox 99 Capillary Refill : Less Than 3 Seconds Height, Weight, BMI Height: '" Weight: lbs. oz. kg; 23.00 BMI Method: General Appearance: WD/WN, Thin, Other (EXTREMELY DRAMATIC, THRASHING ALL OVER. THIS STOPS WHEN STAFF LEAVE ROOM. 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 Norm as Tested Skin: Normal Color, Warm/Dry, Tattoos/Piercings Progress/Results/Core Measures Results/Orders Lab Results Laboratory Tests Test 08/27/22 19:32 08/27/22 19:45 08/27/22 20:48 Range/Units Glucometer 276 H 70-110 MG/DL White Blood Count 7.2 4.3-11.0 10^3/uL Red Blood Count 4.13 L 4.30-5.52 10^6/uL Hemoglobin 13.1 L 13.3-17.7 g/dL Hematocrit 37 L 40-54 % Mean Corpuscular Volume 90 80-99 fL Mean Corpuscular Hemoglobin 32 25-34 pg Mean Corpuscular Hemoglobin Concent 35 32-36 g/dL Red Cell Distribution Width 12.3 10.0-14.5 % Platelet Count 214 130-400 10^3/uL Mean Platelet Volume 10.6 9.0-12.2 fL Immature Granulocyte % (Auto) 0 % Neutrophils (%) (Auto) 73 42-75 % Lymphocytes (%) (Auto) 21 12-44 % Monocytes (%) (Auto) 6 0-12 % Eosinophils (%) (Auto) 0 0-10 % Basophils (%) (Auto) 0 0-10 % Neutrophils # (Auto) 5.3 1.8-7.8 10^3/uL Lymphocytes # (Auto) 1.5 1.0-4.0 10^3/uL Monocytes # (Auto) 0.4 0.0-1.0 10^3/uL Eosinophils # (Auto) 0.0 0.0-0.3 10^3/uL Basophils # (Auto) 0.0 0.0-0.1 10^3/uL Immature Granulocyte # (Auto) 0.0 0.0-0.1 10^3/uL Sodium Level 136 135-145 MMOL/L Potassium Level 3.9 3.6-5.0 MMOL/L Chloride Level 105 98-107 MMOL/L Carbon Dioxide Level 21 21-32 MMOL/L Anion Gap 10 5-14 MMOL/L Blood Urea Nitrogen 18 7-18 MG/DL Creatinine 1.06 0.60-1.30 MG/DL Estimat Glomerular Filtration Rate 96 BUN/Creatinine Ratio 17 Glucose Level 305 H 70-105 MG/DL Lactic Acid Level 2.37 *H 0.50-2.00 MMOL/L Calcium Level 9.3 8.5-10.1 MG/DL Corrected Calcium 9.2 8.5-10.1 MG/DL Magnesium Level 1.4 L 1.6-2.4 MG/DL Total Bilirubin 0.5 0.1-1.0 MG/DL Aspartate Amino Transf (AST/SGOT) 21 5-34 U/L Alanine Aminotransferase (ALT/SGPT) 53 0-55 U/L Alkaline Phosphatase 53 40-136 U/L Total Protein 6.1 L 6.4-8.2 GM/DL Albumin 4.1 3.2-4.5 GM/DL Amylase Level 44 25-125 U/L Lipase 9 8-78 U/L Serum Alcohol < 10 <10 MG/DL Urine Color YELLOW Urine Clarity CLEAR Urine pH 7.0 5-9 Urine Specific [place] 1.015 L 1.016-1.022 Urine Protein NEGATIVE NEGATIVE Urine Glucose (UA) 2+ H NEGATIVE Urine Ketones NEGATIVE NEGATIVE Urine Nitrite NEGATIVE NEGATIVE Urine Bilirubin NEGATIVE NEGATIVE Urine Urobilinogen 0.2 < = 1.0 MG/DL Urine Leukocyte Esterase NEGATIVE NEGATIVE Urine RBC (Auto) NEGATIVE NEGATIVE Urine RBC NONE /HPF Urine WBC NONE /HPF Urine Squamous Epithelial Cells NONE /HPF Urine Crystals NONE /LPF Urine Bacteria TRACE /HPF Urine Casts NONE /LPF Urine Mucus MODERATE H /LPF Urine Culture Indicated NO Urine Opiates Screen POSITIVE H NEGATIVE Urine Oxycodone Screen NEGATIVE NEGATIVE Urine Methadone Screen NEGATIVE NEGATIVE Urine Propoxyphene Screen NEGATIVE NEGATIVE Urine Barbiturates Screen NEGATIVE NEGATIVE Ur Tricyclic Antidepressants Screen NEGATIVE NEGATIVE Urine Phencyclidine Screen NEGATIVE NEGATIVE Urine Amphetamines Screen POSITIVE H NEGATIVE Urine Methamphetamines Screen NEGATIVE NEGATIVE Urine Benzodiazepines Screen NEGATIVE NEGATIVE Urine Cocaine Screen POSITIVE H NEGATIVE Urine Cannabinoids Screen POSITIVE H NEGATIVE My Orders Orders - DEVI HANNON DO Accucheck Stat ONCE (08/27/22 19:29) Ed Iv/Invasive Line Start (08/27/22 19:29) Monitor-Rhythm Ecg Trace Only (08/27/22 19:29) Cbc With Automated Diff (08/27/22 19:29) Comprehensive Metabolic Panel (08/27/22 19:29) Magnesium (08/27/22 19:29) Ua Culture If Indicated (08/27/22 19:29) Beta Hydroxybutyrate (08/27/22 19:31) Hemoglobin A1c (08/27/22 19:31) Alcohol (08/27/22 19:31) Amylase (08/27/22 19:31) Drug Screen Stat (Urine) (08/27/22 19:31) Lactic Acid Analyzer (08/27/22 19:31) Lipase (08/27/22 19:31) Ct Thoracic/Lumbar Spine Wo (08/27/22 19:38) Ed Iv/Invasive Line Start (08/27/22 19:38) Ns Iv 1000 Ml (Sodium Chloride 0.9%) (08/27/22 19:45) Ketorolac Injection (Toradol Injection) (08/27/22 19:45) Orphenadrine Inj (Ed Only) (Norflex Inje (08/27/22 19:45) Diphenhydramine Injection (Benadryl Inje (08/27/22 19:45) Medications Given in ED Current Medications Medications Dose Ordered Sig/Yessenia Route Start Time Stop Time Status Last Admin Dose Admin Diphenhydramine HCl 50 mg ONCE ONCE IVP 08/27/22 19:45 08/27/22 19:46 DC 08/27/22 19:58 50 MG Ketorolac Tromethamine 30 mg ONCE ONCE IVP 08/27/22 19:45 08/27/22 19:46 DC 08/27/22 19:58 30 MG Orphenadrine Citrate 60 mg ONCE ONCE IV 08/27/22 19:45 08/27/22 19:46 DC 08/27/22 19:58 60 MG Vital Signs/I&O 08/27/22 19:32 Temp 36.7 Pulse 81 Resp 18 B/P (MAP) 154/93 (113) Pulse Ox 99 Blood Pressure Mean: 113 FSBG Bedside Testing Finger Stick Blood Glucose: 276 Blood Glucose Action Taken: provider notified Progress Progress Note : Progress Note VITALS ON ARRIVAL: TEMP 36.7, HR 81, RR 18, BP 154/93 ACCUCHECK 276 ON ARRIVAL LABS INCLUDING CBC, CMP, LACTIC ACID, BETA HYDROXYBUTYRATE, HGB A1C, UA/UDS, ETOH, WELL CT SCAN OF SPINE ORDERED GIVEN: -TORADOL -NORFLEX -BENADRYL -IV FLUIDS LAB FINDINGS: -CBC NORMAL REVIEWED PRIOR RECORDS--ONLY VISIT HERE WAS IN 2020 AND WAS ADMITTED FOR DENTAL ABSCESS. Diagnostic Imaging Comments CT LUMBAR SPINE--PER RADIOLOGIST REPORT AT 2044 There is no prior study for comparison The thoracic vertebrae are normal in height and alignment. There are scattered Schmorl's nodes throughout the lower thoracic spine. There is no canal stenosis or acute-appearing abnormality. In the lumbar region, there is no acute fracture or malalignment. There is no spondylolysis or spondylolisthesis. There is no overt canal stenosis. There appears to be some disc bulging at the L5-S1 level, consider MRI for more complete evaluation. IMPRESSION: No acute abnormality in the thoracic or lumbar spine. There is no overt canal stenosis. There is some disc bulging at L5-S1, suggest MRI for more complete evaluation. Departure Impression Primary Impression: Chronic back pain Additional Impressions: Chronic low back pain with right-sided sciatica Type 1 diabetes mellitus with hyperglycemia, with long-term current use of insulin Illicit drug use Disposition: HOME, SELF-CARE Condition: Stable Departure-Patient Inst. Decision time for Depature: 21:40 Referrals: NO,LOCAL PHYSICIAN (PCP) Primary Care Physician Patient Instructions: CHRONIC PAIN, Controlling blood sugar in children with diabetes, Sciatica ED Add. Discharge Instructions: TAKE YOUR HOME MEDICATIONS PRESCRIBED FOLLOW UP WITH YOUR DR FOR FURTHER CARE--CALL IN THE MORNING TO SCHEDULE AN APPOINTMENT All discharge instructions reviewed with patient and/or family. Voiced understanding. DEVI HANNON DO Aug 27, 2022 20:35
[2022-08-27 20:37] LABS: ALANINE AMINOTRANSFERASE 53 U/L (0-55); ALBUMIN 4.1 GM/DL (3.2-4.5); ALKALINE PHOSPHATASE 53 U/L (40-136); AMYLASE 44 U/L (25-125); BILIRUBIN,TOTAL 0.5 MG/DL (0.1-1.0); BUN/CREATININE RATIO 17; CALCIUM 9.3 MG/DL (8.5-10.1); CARBON DIOXIDE 21 MMOL/L (21-32); CHLORIDE 105 MMOL/L (98-107); CREATININE SERUM 1.06 MG/DL (0.60-1.30); GFR ESTIMATED 96; GLUCOSE 305 MG/DL (70-105); LIPASE 9 U/L (8-78); MAGNESIUM 1.4 MG/DL (1.6-2.4); POTASSIUM 3.9 MMOL/L (3.6-5.0); SODIUM 136 MMOL/L (135-145); TOTAL PROTEIN 6.1 GM/DL (6.4-8.2)
[2022-08-27 20:56] LABS: BILIRUBIN,URINE NEGATIVE (NEGATIVE); CLARITY,URINE CLEAR; COLOR,URINE YELLOW; GLUCOSE, URINE (UA) 2+ (NEGATIVE); KETONES,URINE NEGATIVE (NEGATIVE); LEUKOCYTE ESTERASE ,URINE NEGATIVE (NEGATIVE); NITRITE,URINE NEGATIVE (NEGATIVE); PROTEIN,URINE NEGATIVE (NEGATIVE)
[2022-08-27 21:07] LABS: BACTERIA,URINE TRACE /HPF
[2022-08-27 21:22] LABS: AMPHETAMINE SCREEN, URINE POSITIVE (NEGATIVE); BENZODIAZEPINES SCREEN URINE NEGATIVE (NEGATIVE); CANNABINOID SCREEN, URINE POSITIVE (NEGATIVE); COCAINE SCREEN URINE POSITIVE (NEGATIVE); OPIATE SCREEN URINE POSITIVE (NEGATIVE)
[2022-08-27 21:23] LABS: BARBITURATE SCREEN URINE NEGATIVE (NEGATIVE); METHADONE STAT NEGATIVE (NEGATIVE); OXYCODONE STAT NEGATIVE (NEGATIVE); PROPOXYPHENE STAT NEGATIVE (NEGATIVE); TRICYCLIC ANTIDEPRESSANTS SCRE NEGATIVE (NEGATIVE)
== END 2022-08-27 21:50 | disposition home or self-care (01) ==
LOC: EDUNIT# 19:24 → ER 19:25
DX: E10.65 Type 1 diabetes mellitus with hyperglycemia (principal); M54.41 Lumbago with sciatica, right side; G89.29 Other chronic pain; F19.90 Other psychoactive substance use, unspecified, uncomplicated; Z28.311 Partially vaccinated for COVID-19; Z87.81 Personal history of (healed) traumatic fracture
CPT/HCPCS: 72128; 72131; 80053; 80306; 81000; 82010; 82150; 82947; 83036; 83605; 83690; 83735; 85025; 93041; 99284; G0480; 36415; 80320